=== PATIENT | male | born 1960 | race Caucasian/White ===

== ENCOUNTER 2020-08-09 10:02 | Day surgery (SDC) | payer BC ==
[~2020-08-09 10:02] MED LIST: Sodium Chloride 0.9% 10 ML Syringe FLUSH PRN
[2020-08-09] MEDS ORDERED: Neostigmine Methylsulfate 10 MG/10 ML MDV IVPUSH ONE (10:03)
[2020-08-09] MEDS ORDERED: Labetalol 100 MG/20 ML MDV IV ONE (10:03)
[2020-08-09] MEDS ORDERED: Acetaminophen 1,000 MG/100 ML Infusion Bottle Premix IV ONE (10:03)
[2020-08-09] MEDS ORDERED: Glycopyrrolate 0.2 MG/ML 5 ML MDV IV ONE (10:03)
[2020-08-09] MEDS ORDERED: Rocuronium 50 MG/5 ML Vial IVPUSH ONE (10:03)
[2020-08-09] MEDS ORDERED: Midazolam 1 MG/ML 2 ML SDV IV ONE (10:03)
[2020-08-09] MEDS ORDERED: Succinylcholine 200 MG/10 ML MDV IV ONE (10:03)
[2020-08-09] MEDS ORDERED: Dexmedetomidine 200 MCG/2 ML SDV IV ONE (10:03)
[2020-08-09] MEDS ORDERED: fentaNYL 100 MCG/2 ML SDV IV ONE (10:03)
[2020-08-09] MEDS ORDERED: Ketorolac 30 MG/ML SDV IVPUSH ONE (10:03)
[2020-08-09] MEDS ORDERED: Propofol 200 MG/20 ML SDV IV ONE (10:03)
[2020-08-09] MEDS ORDERED: Ondansetron 4 MG/2 ML SDV IVPUSH ONE (10:03)
[2020-08-09] MEDS ORDERED: Lactated Ringers 1,000 ML IV ONE (10:03)
[2020-08-09] MEDS: Lactated Ringers 1,000 ML IV SCH ×2 (10:45→14:29)
[2020-08-09] MEDS ORDERED: ceFAZolin 2 GM in Premix Bag 1 BAG IV ONE (11:30)
[2020-08-09] MEDS ORDERED: ceFAZolin 2 GM in Sodium Chloride 0.9% 100 ML IV ONE (11:30)
--- NOTE | 2020-08-09 12:04 | PCM.PN ---
- General Info Date of Service: 08/09/20 - Review of Systems Systems Review Comment:: 59 y/o male here for repair of ventral incisional hernia. Patient stable to proceed. Recent H and P reviewed and no significant changes noted. Hernia site confirmed with patient and marked. Proposed procedure again discussed with the patient. His questions are answered and he agrees to proceed accepting risks. Post procedure instructions again reviewed. - Patient Data Vitals - Most Recent: Last Vital Signs Temp 97.6 F 08/09/20 10:10 Pulse 62 08/09/20 10:10 Resp 16 08/09/20 10:10 BP 144/96 H 08/09/20 10:10 Pulse Ox 98 08/09/20 10:10 Weight - Most Recent: 227 lb 4.745 oz Med Orders - Current: Current Medications Lactated Ringer's (Ringers, Lactated) 1,000 mls @ 125 mls/hr IV ASDIRECTED JORGE ALBERTO Sodium Chloride (Saline Flush) 10 ml FLUSH ASDIRECTED PRN PRN Reason: Keep Vein Open Discontinued Medications Cefazolin Sodium/Dextrose 2 gm (/ Premix) 50 mls @ 100 mls/hr IV ONETIME ONE Stop: 08/09/20 11:59 Last Admin: 08/09/20 10:51 Dose: 100 mls/hr Documented by: - Exam General: Alert, Oriented Lungs: Clear to Auscultation Cardiovascular: Regular Rate, Regular Rhythm GI/Abdominal Exam: Soft, Other (Hernia defect palpated and marked) Sepsis Event Note - Focused Exam Vital Signs: Vital Signs Temp Pulse Resp BP Pulse Ox 08/09/20 10:10 97.6 F 62 16 144/96 H 98 - Problem List Review Problem List Initiated/Reviewed/Updated: Yes - My Orders Last 24 Hours: My Active Orders 08/08/20 14:11 Resuscitation Status Routine 08/08/20 Dinner Nothing Per Oral Diet [DIET] 08/09/20 10:00 Patient Status [ADT] Routine Patient to Empty Bladder [RC] ASDIRECTED RT Incentive Spirometry [RC] ASDIRECTED Verify Patient Consent Obtain [RC] ASDIRECTED Lactated Ringers [Ringers, Lactated] 1,000 ml IV ASDIRECTED Sodium Chloride 0.9% [Saline Flush] 10 ml FLUSH ASDIRECTED PRN Peripheral IV Insertion Adult [OM.PC] Routine Sequential Compression Device [OM.PC] Routine - Assessment Assessment:: Ventral incisional hernia - Plan Plan:: Laparoscopic repair of ventral incisional hernia
[2020-08-09] MEDS ORDERED: ceFAZolin 1 GM Vial ONE (12:21)
[2020-08-09] MEDS ORDERED: Bupivacaine 0.5% 50 ML MDV INJECT ONE (12:21)
--- NOTE | 2020-08-09 13:46 | PCM.OPNOTE ---
- General Post-Op/Procedure Note Date of Surgery/Procedure: 08/09/20 Operative Procedure(s): Laparoscopic Repair of Ventral Incisional Hernia Findings: Hernia near umbilicus containing omentum Pre Op Diagnosis: Ventral Incisional Hernia Post-Op Diagnosis: Same Anesthesia Technique: General ET Tube Primary Surgeon: Chuy Evans Goal Umpire: Connor Saldivar Reason Goal Umpire Was Necessary: To assist in dissection and exposure and improve efficiency Pathology: none EBL in mLs: 20 Complications: None Condition: Good
[2020-08-09] MEDS ORDERED: traMADol 50 MG Tab PO PRN (13:51)
--- NOTE | 2020-08-09 14:41 | OR ---
DATE OF OPERATION: 08/09/2020 SURGEON: Chuy Evans MD [employer] SALESPERSON: Connor Saldivar MD. Cushion Spring Assembler necessary to assist with dissection and exposure and also to improve efficiency. PREOPERATIVE DIAGNOSIS: Ventral incisional hernia. POSTOPERATIVE DIAGNOSIS: Ventral incisional hernia. OPERATION PERFORMED: Laparoscopic repair of ventral incisional hernia. INDICATIONS FOR SURGERY: This 59-year-old male, who has had a previous robotic prostatectomy, has developed a bulge at the level of his umbilicus, and physical findings are consistent with a hernia in this region. The hernia is increasingly symptomatic, and he comes for elective repair. FINDINGS: At the level of the umbilicus, the patient has 2 defects that are adjacent to each other. These are oriented transversely. Both of them contain omental tissue, but this does not appear to be vascularly compromised. The surrounding fascia is solid. No other defects were seen. PROCEDURE IN DETAIL: The patient was taken to the operating room. He was given general endotracheal anesthesia. The abdomen was sterilely prepped and draped. Through a right upper quadrant incision, the abdominal cavity was entered under direct visualization using a Visiport trocar, and pneumoperitoneum to a pressure of 15 mmHg was achieved. Utilizing a 5 mm variable angled laparoscopic camera, additional 5 mm ports were placed in the left upper quadrant and left and right lower quadrants. All trocar sites were infiltrated with Marcaine prior to incision. Intraabdominal inspection was carried out. The location of the hernias was identified, and using careful blunt dissection, the omentum that was located within both of the hernia defects was carefully pulled out and the hernia defect clearly identified. Fatty tissue adhered to the anterior abdominal wall just inferior to the hernia defect was cleared with cautery to provide a better adherent surface for the laparoscopic mesh. The hernias were measured, and a Ventralight ST mesh 4 x 6 inches was selected, and sutures were placed on the 4 axis of the mesh. Ancef and saline solution were then applied to the mesh, and the mesh was placed intraabdominally. The mesh was unfolded, and the 4 access sutures were brought out through the anterior abdominal wall to anchor the mesh in position centered over the fascial defects. With the 2 transversely oriented defects, the mesh was placed with the longer axis stretching laterally and the narrower axis stretching vertically which gave full coverage with a good margin around all of the defects. The mesh was then anchored to the anterior abdominal wall using absorbable tacks with an outer ring around the periphery of the mesh, being closely spaced, and a second inner ring of tacks also placed holding the mesh in very secure position over the hernia defects with a good margin of mesh noted adherent to the fascia all around the hernias. The patient was noted to have a small amount of oozing from his omentum which had been freed from the hernia defects, and this was controlled with cautery. The area was copiously irrigated, and no sign of any complication was noted. The fascia of the largest trocar site was then closed with a 0 Vicryl suture using a port closure device, and pneumoperitoneum was evacuated and the trocars removed under direct visualization. The wounds were irrigated with Betadine and saline solution. Skin incisions approximated with interrupted 4-0 Vicryl in subcuticular stitch. Steri-Strips and benzoin were applied followed by antibiotic ointment. Sterile dressings were placed. The patient was awakened, extubated, and taken from the operating room in satisfactory condition. ESTIMATED BLOOD LOSS: 20 mL. COMPLICATIONS: None. PROGNOSIS: Good. /[id number] MOOSE/MIKE
== END 2020-08-09 15:57 | disposition home or self-care (01) ==
LOC: FB.SDS 10:02
PROVIDERS: ATTEND Surgery
DX: K43.2 Incisional hernia without obstruction or gangrene (principal); I10 Essential (primary) hypertension; E66.9 Obesity, unspecified; Z68.33 Body mass index [BMI] 33.0-33.9, adult; Z98.890 Other specified postprocedural states; Z79.899 Other long term (current) drug therapy; Z01.812 Encounter for preprocedural laboratory examination; Z20.828 Contact with and (suspected) exposure to other viral communicable diseases
CPT/HCPCS: 00752-QZ; 94150; A9270-GY; C1713; C1781; J0131; J0330; J0690; J1885; J2250; J2405; J2704; J2710; J3010; J3490; J7120